=== PATIENT | male | born 1960 | race Caucasian/White ===

== ENCOUNTER 2023-05-15 10:03 | Inpatient (IN) | payer OTHER, MEDICAID ==
[~2023-05-15] VITALS: Ht 172.7 cm; Wt 65.9 kg
[2023-05-15] VITALS (12 sets, daily range): BP systolic 101–124; BP diastolic 74–92; PULSE 105–112; RESP 12–24; TEMP 97.2–99; O2SAT 95–97
[~2023-05-15 10:03] MED LIST: ATOR40TA72 PO; DICL100G15 TOP; DULA0.75; SERT-434 PO; aspirin 81mg tab.chew ONE; heparin 10,000 units/1 ML INJ ONE
[2023-05-15] MEDS ORDERED: aspirin 81mg tab.chew PO ONE ×2 (10:15→10:25)
[2023-05-15 10:16] LABS: BASOPHILS # (AUTO) 0.1 X10'3 (0-0.2); EOSINOPHILS % (AUTO) 0.5 % (0-6); HEMATOCRIT 42.8 % (42.0-52.0); HEMOGLOBIN 14.2 g/dl (14.0-17.9); LYMPHOCYTES # (AUTO) 1.9 X10'3 (1.1-4.8); LYMPHOCYTES % (AUTO) 20.6 % (21-51); MEAN CORPUSCULAR HGB CONC 33.2 g/dL (33.0-36.5); MEAN CORPUSCULAR VOLUME 93.5 FL (78-98); MEAN PLATELET VOLUME 8.7 FL (7.4-10.4); MONOCYTES # (AUTO) 0.9 X10'3 (0-0.9); MONOCYTES % (AUTO) 9.4 % (2-12); NEUTROPHILS # (AUTO) 6.5 X10'3 (1.8-7.7); NEUTROPHILS % (AUTO) 68.5 % (42-75); PLATELET COUNT 347 X10'3 (140-440); RED BLOOD COUNT 4.58 X10'6 (4.70-6.10); RED CELL DISTRIBUTION WIDTH 14.4 % (11.5-14.5); WHITE BLOOD COUNT 9.4 X10'3 (4.5-11.0)
[2023-05-15] MEDS ORDERED: verapamil 2.5 mg/ml inj IV ONE (10:16)
[2023-05-15] MEDS ORDERED: heparin 1,000unit/ml 10ml vial 10 ML ONE (10:17)
[2023-05-15] MEDS ORDERED: LIDOcaine 1% (10mg/ml)w/preservative inj. 20ml MDV ONE (10:17)
[2023-05-15] MEDS ORDERED: iohexol 350MG/ML 100ml bottle IV ONE ×4 (10:17→11:30)
[2023-05-15] MEDS ORDERED: midazolam 1 mg/ML 2ml injection ONE (10:17)
[2023-05-15] MEDS ORDERED: heparin 1,000 UNITS/NS 500ml 500 ML ONE (10:17)
[2023-05-15] MEDS ORDERED: fentaNYL/PF 50MCG/1 ML 2ML syringe ONE (10:17)
--- NOTE | 2023-05-15 10:23 | NUR ---
TO [facility] AT THIS TIME.
[2023-05-15] MEDS ORDERED: heparin 10,000 units/1 ML INJ IV ONE (10:25)
[2023-05-15] MEDS ORDERED: atropine 0.1mg/ml 10ml syringe ONE (10:34)
--- NOTE | 2023-05-15 10:38 | NUR ---
Patient's belongings in safe with security.
[2023-05-15 10:45] LABS: APTT 29 SECONDS (22-32); PROTHROMBIN TIME 11.2 SECONDS (9.0-12.0)
[2023-05-15 10:49] LABS: ALANINE AMINOTRANSFERASE 95 U/L (12-78); ALBUMIN 2.4 G/DL (3.4-5.0); ALBUMIN/GLOBULIN RATIO 0.5 (1.1-1.5); ALKALINE PHOSPHATASE 148 IU/L (46-116); ANION GAP 7 (8-16); ASPARTATE AMINO TRANSFERASE 57 U/L (10-37); BLOOD UREA NITROGEN 15 MG/DL (7-18); BUN/CREATININE RATIO 12.7 (10.0-20.0); CALCIUM 8.8 MG/DL (8.5-10.1); CHLORIDE 97 MMOL/L (99-107); CREATININE 1.18 MG/DL (0.60-1.10); POTASSIUM 4.4 MMOL/L (3.5-5.1); SODIUM 132 MMOL/L (135-145); TOTAL CARBON DIOXIDE 27.6 MMOL/L (24-32); TOTAL PROTEIN 7.3 G/DL (6.4-8.2); eCRCL 62 ML/MIN; eGFR 63 ML/MIN
[2023-05-15 10:52] LABS: GLUCOSE 404 MG/DL (70-104)
[2023-05-15] MEDS ORDERED: tirofiban 12.5mg in NS 250mL 250 ML IV ONE (11:48)
[2023-05-15] MEDS ORDERED: clopidogrel 300mg tablet ONE (11:54)
[2023-05-15] MEDS ORDERED: aspirin 325mg tablet ONE (11:54)
[2023-05-15] MEDS ORDERED: ondansetron/PF 4mg/2ml inj ONE (12:10)
[2023-05-15] MEDS ORDERED: HYDROcodone/acetaminophen 5mg/325mg tablet PO PRN (12:40)
[2023-05-15] MEDS ORDERED: HYDROcodone/acetaminophen 10/325mg tab PO PRN (12:40)
[2023-05-15 13:30] LABS: PRO BRAIN NATRIURETIC PEPTIDE 15002 PG/ML (0-125)
[2023-05-15] MEDS: tirofiban 12.5mg in NS 250mL 250 ML IV SCH (15:30)
[2023-05-15] MEDS ORDERED: mag hydrox/Alum hydrox/simeth 30ml oral suspension PO PRN (15:30)
[2023-05-15] MEDS ORDERED: magnesium Cl slow-release 64mg tablet PO PRN (15:30)
[2023-05-15] MEDS ORDERED: magnesium 2GM in 50ml NS 50 ML IV PRN (15:30)
[2023-05-15] MEDS ORDERED: potassium Cl 20 mEq SR tablet PO PRN ×2 (15:30)
[2023-05-15] MEDS ORDERED: magnesium 4gm in 100ml NS 100 ML IV PRN (15:30)
[2023-05-15] MEDS ORDERED: magnesium hydroxide 30ml (MOM) UD suspension PO PRN (15:30)
[2023-05-15] MEDS ORDERED: potassium Cl 40MEQ/1/2NS 520ml 520 ML IV PRN (15:30)
[2023-05-15] MEDS ORDERED: acetaminophen 325mg tablet PO PRN (15:30)
[2023-05-15] MEDS ORDERED: VITA1TAB20 PO (15:57)
[2023-05-15 18:55] LABS: BILIRUBIN,URINE NEGATIVE (Neg); CLARITY,URINE CLOUDY (Clear); COLOR,URINE YELLOW (Yellow); GLUCOSE, URINE 100 mg/dl (Neg); KETONES,URINE NEGATIVE (Neg); LEUKOCYTE ESTERASE ,URINE NEGATIVE (Neg); NITRITES, URINE NEGATIVE (Neg); OCCULT BLOOD,URINE TRACE-INTACT (Neg); PH,URINE 6.5 (4.8-8.0); PROTEIN,URINE TRACE mg/dl (Neg)
--- NOTE | 2023-05-15 19:05 | NUR ---
Problems reprioritized. Patient report given, questions answered & plan of care reviewed with Jocelyn AGUILAR, patient stable at transfer of care.
[2023-05-15 19:13] LABS: URINE AMPHETAMINE SCREEN NEGATIVE (Neg); URINE BARBITUATE SCREEN NEGATIVE (Neg); URINE BENZODIAZEPINES SCREEN POSITIVE (Neg); URINE CANNABINOID SCREEN POSITIVE (Neg); URINE COCAINE SCREEN NEGATIVE (Neg); URINE METHADONE SCREEN NEGATIVE (Neg); URINE OPIATE SCREEN NEGATIVE (Neg); URINE PHENCYCLIDINE SCREEN NEGATIVE (Neg)
[2023-05-15 19:24] LABS: UA COLLECTION TYPE CLN CATCH MIDSTREAM
[2023-05-15 19:25] LABS: BACTERIA,URINE FEW /HPF (Neg); MUCUS STRANDS FEW /LPF (Neg); SQUAMOUS EPITHELIAL CELL,UR FEW /LPF (FEW)
[2023-05-15] MEDS ORDERED: dextrose 50%-water 50ml dispensing syringe IV PRN ×2 (19:25)
[2023-05-15] MEDS ORDERED: insulin Lispro (HumaLOG) vial - multi-dose SQ SCH (19:25)
[2023-05-15] MEDS ORDERED: DEXTROSE 15 GM of carb/4 tabs (each vial/BOTTLE has 4 tablets) PO PRN ×2 (19:25)
[2023-05-15] MEDS ORDERED: glucagon, human recombinant 1mg kit SUBCUT PRN (19:25)
[2023-05-15 19:26] LABS: YEAST FEW /HPF (NEGATIVE)
[2023-05-15] MEDS: K and/or MAG REPLACEMENT MC SCH (19:33)
--- NOTE | 2023-05-15 19:35 | NUR ---
pt's B/S is 265. okayed to start hypo/ hyperglycemic protocol.
[2023-05-15] MEDS: docusate sod 100mg capsule PO SCH (19:54)
[2023-05-15] MEDS ORDERED: metoprolol tartrate 25mg tablet PO SCH (20:00)
[2023-05-15] MEDS: insulin glargine (Lantus) pen - multi-dose SQ SCH (21:00)
--- NOTE | 2023-05-15 21:11 | NUR ---
pt refused night time insulin (lantus). Said he has not and will not take insulin
--- NOTE | 2023-05-15 21:17 | NUR ---
Page Sent PAGER ID: [phone] MESSAGE: Kian Fajardo in rm [id number] has b/s of 234, but is refusing to take insulin. Mahogany u [id number]
[2023-05-15] MEDS: ondansetron/PF 4mg/2ml inj IV PRN (22:19)
--- NOTE | 2023-05-15 22:46 | NUR ---
Pt vomited dark brownish like substance this night. Leon Booker was notified and he ordered a CBC lab test. Will continue to monitor.
[2023-05-15 23:31] LABS: BASOPHILS # (AUTO) 0.1 X10'3 (0-0.2); BASOPHILS % (AUTO) 0.9 % (0-1); EOSINOPHILS % (AUTO) 0.4 % (0-6); HEMATOCRIT 42.2 % (42.0-52.0); HEMOGLOBIN 13.8 g/dl (14.0-17.9); LYMPHOCYTES # (AUTO) 2.2 X10'3 (1.1-4.8); LYMPHOCYTES % (AUTO) 16.3 % (21-51); MEAN CORPUSCULAR HEMOGLOBIN 30.6 PG (27.0-31.0); MEAN CORPUSCULAR HGB CONC 32.6 g/dL (33.0-36.5); MEAN PLATELET VOLUME 9.1 FL (7.4-10.4); MONOCYTES # (AUTO) 0.8 X10'3 (0-0.9); MONOCYTES % (AUTO) 6.1 % (2-12); NEUTROPHILS # (AUTO) 10.1 X10'3 (1.8-7.7); NEUTROPHILS % (AUTO) 76.3 % (42-75); PLATELET COUNT 388 X10'3 (140-440); RED BLOOD COUNT 4.49 X10'6 (4.70-6.10); RED CELL DISTRIBUTION WIDTH 14.6 % (11.5-14.5); WHITE BLOOD COUNT 13.3 X10'3 (4.5-11.0)
[2023-05-16 02:00] VITALS: BP 116/84; PULSE 102; RESP 21; TEMP 98.8; O2SAT 96
[2023-05-16] MEDS: tirofiban 12.5mg in NS 250mL 250 ML IV SCH (02:55)
--- NOTE | 2023-05-16 06:12 | NUR ---
Problems reprioritized. Patient report given, questions answered & plan of care reviewed with Edwige.
[2023-05-16 08:00] VITALS: RESP 25; O2SAT 98
[2023-05-16] MEDS: clopidogrel 75mg tablet PO SCH (08:00)
[2023-05-16] MEDS ORDERED: LORazepam 0.5 MG tablet PO PRN (08:00)
[2023-05-16] MEDS: K and/or MAG REPLACEMENT MC SCH ×2 (08:00→20:00)
[2023-05-16] MEDS: docusate sod 100mg capsule PO SCH ×3 (08:00→20:20)
[2023-05-16] MEDS: aspirin 81mg tab.chew PO SCH (08:30)
[2023-05-16] MEDS: ondansetron/PF 4mg/2ml inj IV PRN (08:49)
[2023-05-16] MEDS ORDERED: pantoprazole 40MG/NS 100ML BAG 100 ML IV ONE (10:35)
[2023-05-16 12:44] LABS: ALBUMIN 2.4 G/DL (3.4-5.0); ALBUMIN/GLOBULIN RATIO 0.5 (1.1-1.5); ALKALINE PHOSPHATASE 161 IU/L (46-116); ANION GAP 14 (8-16); BILIRUBIN,TOTAL 1.5 MG/DL (0.1-1.0); BLOOD UREA NITROGEN 28 MG/DL (7-18); BUN/CREATININE RATIO 20.1 (10.0-20.0); CALCIUM 9.2 MG/DL (8.5-10.1); CHLORIDE 97 MMOL/L (99-107); CREATININE 1.39 MG/DL (0.60-1.10); GLUCOSE 213 MG/DL (70-104); MAGNESIUM 2.5 MG/DL (1.5-2.4); POTASSIUM 5.8 MMOL/L (3.5-5.1); SODIUM 129 MMOL/L (135-145); TOTAL PROTEIN 7.6 G/DL (6.4-8.2); eCRCL 53 ML/MIN; eGFR 52 ML/MIN
[2023-05-16] MEDS: metoprolol succinate 25mg (24-HOUR) SR. Tablet PO SCH (13:20)
[2023-05-16 13:31] LABS: ASPARTATE AMINO TRANSFERASE 3012 U/L (10-37)
[2023-05-16 13:32] LABS: ALANINE AMINOTRANSFERASE 1787 U/L (12-78)
--- NOTE | 2023-05-16 13:58 | NUR ---
PAGER ID: [phone] MESSAGE: [id number], Kian Fajardo. Pts ALT is [id number] and AST [id number]. Edwige SERRATO
[2023-05-16 15:00] VITALS: BP 126/75; PULSE 101; RESP 25; TEMP 97.6; O2SAT 96
[2023-05-16 18:00] VITALS: BP 105/76; PULSE 105; RESP 23; TEMP 99.9; O2SAT 93
--- NOTE | 2023-05-16 18:30 | NUR ---
Patient in room PCU 3023. I have received report from Edwige AGUILAR and had the opportunity to ask questions and assume patient care.
--- NOTE | 2023-05-16 18:44 | NUR ---
Problems reprioritized. Patient report given, questions answered & plan of care reviewed with Alee AGUILAR, patient stable at transfer of care.
--- NOTE | 2023-05-16 19:00 | NUR ---
PT REFUSED SHORT ACTING INSULIN; EDUCATED ON PROS AND CONS OF REFUSING THE INSULIN.
[2023-05-16 20:00] VITALS: RESP 23; O2SAT 93
[2023-05-16] MEDS: insulin glargine (Lantus) pen - multi-dose SQ SCH (21:00)
--- NOTE | 2023-05-16 21:52 | NUR ---
PT REFUSED FOR ACCUCHECK AND LONG-ACTING INSULIN; EDUCATED ON PROS AND CONS OF REFUSING THE INSULIN; BUT PT IS NOT WILLING TO TAKE IT
[2023-05-16 22:00] VITALS: BP 96/56; PULSE 90; RESP 15; TEMP 98.3; O2SAT 96
--- NOTE | 2023-05-17 06:22 | NUR ---
Patient in room PCU 3023. I have received report from Alee AGUILAR and had the opportunity to ask questions and assume patient care.
--- NOTE | 2023-05-17 06:23 | NUR ---
Problems reprioritized. Patient report given, questions answered & plan of care reviewed with Bentley AGUILAR.
[2023-05-17 07:00] VITALS: BP 115/70; PULSE 109; RESP 18; TEMP 98.4; O2SAT 93
[2023-05-17 07:48] LABS: ALBUMIN 2.6 G/DL (3.4-5.0); ANION GAP 13 (8-16); BLOOD UREA NITROGEN 49 MG/DL (7-18); BUN/CREATININE RATIO 23.3 (10.0-20.0); CALCIUM 8.2 MG/DL (8.5-10.1); CHLORIDE 97 MMOL/L (99-107); CHOL/HDL RATIO 5.3 (0.00-4.99); CHOLESTEROL 112 MG/DL (0-200); GLUCOSE 253 MG/DL (70-104); HDL CHOLESTEROL 21 MG/DL (35-60); LDL CHOLESTEROL 81 MG/DL (50-100); MAGNESIUM 2.3 MG/DL (1.5-2.4); SODIUM 132 MMOL/L (135-145); TOTAL CARBON DIOXIDE 21.9 MMOL/L (24-32); TRIGLYCERIDES 64 MG/DL (20-135); eCRCL 35 ML/MIN; eGFR 32 ML/MIN
[2023-05-17 07:51] LABS: BASOPHILS % (AUTO) 0.4 % (0-1); EOSINOPHILS % (AUTO) 0.3 % (0-6); HEMATOCRIT 41.5 % (42.0-52.0); HEMOGLOBIN 13.7 g/dl (14.0-17.9); LYMPHOCYTES # (AUTO) 1.5 X10'3 (1.1-4.8); LYMPHOCYTES % (AUTO) 14.9 % (21-51); MEAN CORPUSCULAR HEMOGLOBIN 31.3 PG (27.0-31.0); MEAN CORPUSCULAR VOLUME 94.8 FL (78-98); MEAN PLATELET VOLUME 9.9 FL (7.4-10.4); MONOCYTES # (AUTO) 0.2 X10'3 (0-0.9); MONOCYTES % (AUTO) 2.3 % (2-12); NEUTROPHILS # (AUTO) 8.5 X10'3 (1.8-7.7); NEUTROPHILS % (AUTO) 82.1 % (42-75); PLATELET COUNT 272 X10'3 (140-440); RED BLOOD COUNT 4.38 X10'6 (4.70-6.10); RED CELL DISTRIBUTION WIDTH 14.4 % (11.5-14.5); WHITE BLOOD COUNT 10.4 X10'3 (4.5-11.0)
[2023-05-17 08:00] VITALS: RESP 18; O2SAT 93
[2023-05-17] MEDS: K and/or MAG REPLACEMENT MC SCH ×2 (08:00→20:00)
[2023-05-17] MEDS ORDERED: atorvastatin 20mg tablet PO SCH (08:00)
[2023-05-17] MEDS: docusate sod 100mg capsule PO SCH ×2 (08:00→19:55)
[2023-05-17] MEDS: clopidogrel 75mg tablet PO SCH (08:14)
[2023-05-17] MEDS: metoprolol succinate 25mg (24-HOUR) SR. Tablet PO SCH (08:14)
[2023-05-17] MEDS: aspirin 81mg tab.chew PO SCH (08:14)
[2023-05-17 08:15] LABS: HEMOGLOBIN A1C 7.6 % (4.5-6.2)
[2023-05-17 10:36] LABS: ALBUMIN/GLOBULIN RATIO 0.7 (1.1-1.5); ALKALINE PHOSPHATASE 177 IU/L (46-116); BILIRUBIN,DIRECT 0.6 MG/DL (0-0.3); BILIRUBIN,TOTAL 1.1 MG/DL (0.1-1.0); PRO BRAIN NATRIURETIC PEPTIDE 16096 PG/ML (0-125); TOTAL PROTEIN 6.4 G/DL (6.4-8.2)
[2023-05-17 11:00] VITALS: BP 103/74; PULSE 105; RESP 24; TEMP 97.7; O2SAT 97
[2023-05-17 11:09] LABS: ALANINE AMINOTRANSFERASE 6017 U/L (12-78); ASPARTATE AMINO TRANSFERASE > 7000 U/L (10-37)
[2023-05-17 15:00] VITALS: BP 115/88; PULSE 105; RESP 20; TEMP 97.7; O2SAT 96
[2023-05-17] MEDS: normal saline 1000ml 1,000 ML IV SCH (16:33)
--- NOTE | 2023-05-17 16:40 | NUR ---
Pt has been refusing insulin for his DM control. Today I checked if I could check his BS and he refused. He stated, "If I'm not having you use insulin why do you need to check my BS?" I educated him about BS checks and DM briefly but he didn't want to be told about it. I told him I wouldn't check his BS if he didn't want it. BS checks have been held today via glucometer, AM glucose checks were done with labs this morning.
[2023-05-17 18:00] VITALS: BP 117/81; PULSE 106; RESP 22; TEMP 97.2; O2SAT 93
--- NOTE | 2023-05-17 18:30 | NUR ---
Problems reprioritized. Patient report given, questions answered & plan of care reviewed with Angélica VALVERDE.
--- NOTE | 2023-05-17 18:40 | NUR ---
Patient in room PCU 3023. I have received report from Bentley sanders and had the opportunity to ask questions and assume patient care.
[2023-05-17] MEDS: insulin glargine (Lantus) pen - multi-dose SQ SCH (21:00)
--- NOTE | 2023-05-17 23:06 | NUR ---
pt refusing meds, accuchecks, vitals and most nursing care.
[2023-05-18] VITALS (9 sets, daily range): BP systolic 80–113; BP diastolic 49–83; PULSE 92–107; RESP 13–23; TEMP 97.3–99.8; O2SAT 92–96
[2023-05-18] MEDS: normal saline 1000ml 1,000 ML IV SCH ×2 (01:45→11:45)
--- NOTE | 2023-05-18 06:38 | NUR ---
Problems reprioritized. Patient report given, questions answered & plan of care reviewed with iwona sanders.
--- NOTE | 2023-05-18 06:47 | NUR ---
Patient in room PCU 3023. I have received report from edwina montejo and had the opportunity to ask questions and assume patient care.
[2023-05-18] MEDS: docusate sod 100mg capsule PO SCH ×2 (07:50→20:00)
[2023-05-18] MEDS: clopidogrel 75mg tablet PO SCH (07:53)
[2023-05-18] MEDS: aspirin 81mg tab.chew PO SCH (07:53)
[2023-05-18] MEDS: metoprolol succinate 25mg (24-HOUR) SR. Tablet PO SCH (07:54)
[2023-05-18] MEDS: K and/or MAG REPLACEMENT MC SCH ×2 (08:00→20:00)
[2023-05-18 08:02] LABS: BASOPHILS # (AUTO) 0.1 X10'3 (0-0.2); BASOPHILS % (AUTO) 0.9 % (0-1); EOSINOPHILS # (AUTO) 0.1 X10'3 (0-0.9); EOSINOPHILS % (AUTO) 1.3 % (0-6); HEMATOCRIT 41.6 % (42.0-52.0); HEMOGLOBIN 13.9 g/dl (14.0-17.9); LYMPHOCYTES # (AUTO) 1.2 X10'3 (1.1-4.8); LYMPHOCYTES % (AUTO) 11.2 % (21-51); MEAN CORPUSCULAR HEMOGLOBIN 31.5 PG (27.0-31.0); MEAN CORPUSCULAR HGB CONC 33.4 g/dL (33.0-36.5); MEAN CORPUSCULAR VOLUME 94.3 FL (78-98); MEAN PLATELET VOLUME 9.7 FL (7.4-10.4); MONOCYTES # (AUTO) 0.5 X10'3 (0-0.9); MONOCYTES % (AUTO) 4.3 % (2-12); NEUTROPHILS # (AUTO) 9.1 X10'3 (1.8-7.7); NEUTROPHILS % (AUTO) 82.3 % (42-75); PLATELET COUNT 270 X10'3 (140-440); RED BLOOD COUNT 4.41 X10'6 (4.70-6.10); RED CELL DISTRIBUTION WIDTH 14.6 % (11.5-14.5)
[2023-05-18 08:34] LABS: ALBUMIN 2.3 G/DL (3.4-5.0); ALBUMIN/GLOBULIN RATIO 0.5 (1.1-1.5); ALKALINE PHOSPHATASE 188 IU/L (46-116); ANION GAP 9 (8-16); BILIRUBIN,TOTAL 1.1 MG/DL (0.1-1.0); BLOOD UREA NITROGEN 30 MG/DL (7-18); CALCIUM 8.1 MG/DL (8.5-10.1); CHLORIDE 102 MMOL/L (99-107); CREATININE 1.25 MG/DL (0.60-1.10); GLUCOSE 134 MG/DL (70-104); MAGNESIUM 2.2 MG/DL (1.5-2.4); POTASSIUM 4.1 MMOL/L (3.5-5.1); SODIUM 137 MMOL/L (135-145); TOTAL CARBON DIOXIDE 26.2 MMOL/L (24-32); TOTAL PROTEIN 6.5 G/DL (6.4-8.2); eCRCL 59 ML/MIN; eGFR 59 ML/MIN
[2023-05-18 08:47] LABS: ALANINE AMINOTRANSFERASE 4037 U/L (12-78); ASPARTATE AMINO TRANSFERASE 2062 U/L (10-37)
[2023-05-18] MEDS ORDERED: LOSA25TA41 PO (10:59)
[2023-05-18] MEDS ORDERED: CLOP75TA34 PO (10:59)
[2023-05-18] MEDS ORDERED: ASPI81TA53 PO (10:59)
[2023-05-18] MEDS ORDERED: METO-395 PO (10:59)
[2023-05-18] MEDS: losartan 25mg tablet PO SCH (12:19)
--- NOTE | 2023-05-18 13:11 | NUR ---
Per EMR pt with T2DM, well controlled with A1c 7.6%. Per H&P pt with Trulicity on home med list. Written DM education with RD contact information placed in patient's chart. Will remain available. Addendum: 05/18/23 at 1312 [address] Amended: Links added.
--- NOTE | 2023-05-18 18:08 | NUR ---
Patient in room PCU 3023. I have received report from iwona sanders and had the opportunity to ask questions and assume patient care.
--- NOTE | 2023-05-18 18:08 | NUR ---
Problems reprioritized. Patient report given, questions answered & plan of care reviewed with jovan montejo.
[2023-05-18] MEDS: insulin glargine (Lantus) pen - multi-dose SQ SCH (21:00)
[2023-05-19 02:00] VITALS: BP 100/71; PULSE 96; RESP 18; TEMP 98.4; O2SAT 96
[2023-05-19 06:00] VITALS: BP 102/71; PULSE 97; RESP 17; TEMP 98.4; O2SAT 98
--- NOTE | 2023-05-19 06:30 | NUR ---
Problems reprioritized. Patient report given, questions answered & plan of care reviewed with tin sanders.
--- NOTE | 2023-05-19 06:38 | NUR ---
I have received report from JEFF Larkin and had the opportunity to ask questions and assume patient care. No distress at this time.
[2023-05-19 07:21] LABS: BASOPHILS # (AUTO) 0.1 X10'3 (0-0.2); BASOPHILS % (AUTO) 1.2 % (0-1); EOSINOPHILS # (AUTO) 0.2 X10'3 (0-0.9); EOSINOPHILS % (AUTO) 1.9 % (0-6); HEMATOCRIT 41.1 % (42.0-52.0); HEMOGLOBIN 13.6 g/dl (14.0-17.9); LYMPHOCYTES # (AUTO) 1.3 X10'3 (1.1-4.8); LYMPHOCYTES % (AUTO) 12.5 % (21-51); MEAN CORPUSCULAR HEMOGLOBIN 31.2 PG (27.0-31.0); MEAN CORPUSCULAR HGB CONC 33.2 g/dL (33.0-36.5); MEAN CORPUSCULAR VOLUME 94.1 FL (78-98); MEAN PLATELET VOLUME 9.7 FL (7.4-10.4); MONOCYTES # (AUTO) 0.7 X10'3 (0-0.9); MONOCYTES % (AUTO) 6.7 % (2-12); NEUTROPHILS # (AUTO) 8.3 X10'3 (1.8-7.7); NEUTROPHILS % (AUTO) 77.7 % (42-75); PLATELET COUNT 261 X10'3 (140-440); RED BLOOD COUNT 4.36 X10'6 (4.70-6.10); RED CELL DISTRIBUTION WIDTH 14.5 % (11.5-14.5); WHITE BLOOD COUNT 10.7 X10'3 (4.5-11.0)
[2023-05-19] MEDS: metoprolol succinate 25mg (24-HOUR) SR. Tablet PO SCH (07:30)
[2023-05-19] MEDS: clopidogrel 75mg tablet PO SCH (07:30)
[2023-05-19] MEDS: aspirin 81mg tab.chew PO SCH (07:31)
[2023-05-19] MEDS: docusate sod 100mg capsule PO SCH (07:31)
[2023-05-19] MEDS: losartan 25mg tablet PO SCH (07:31)
[2023-05-19 07:39] LABS: ALBUMIN 2.2 G/DL (3.4-5.0); ALBUMIN/GLOBULIN RATIO 0.5 (1.1-1.5); ALKALINE PHOSPHATASE 185 IU/L (46-116); ANION GAP 7 (8-16); ASPARTATE AMINO TRANSFERASE 694 U/L (10-37); BILIRUBIN,TOTAL 0.9 MG/DL (0.1-1.0); BLOOD UREA NITROGEN 21 MG/DL (7-18); BUN/CREATININE RATIO 19.4 (10.0-20.0); CALCIUM 8.1 MG/DL (8.5-10.1); CHLORIDE 103 MMOL/L (99-107); CREATININE 1.08 MG/DL (0.60-1.10); GLUCOSE 147 MG/DL (70-104); MAGNESIUM 2.1 MG/DL (1.5-2.4); POTASSIUM 4.5 MMOL/L (3.5-5.1); SODIUM 137 MMOL/L (135-145); TOTAL CARBON DIOXIDE 27.1 MMOL/L (24-32); TOTAL PROTEIN 6.4 G/DL (6.4-8.2); eCRCL 68 ML/MIN; eGFR 70 ML/MIN
[2023-05-19 07:41] LABS: ALANINE AMINOTRANSFERASE 2775 U/L (12-78)
[2023-05-19 08:00] VITALS: RESP 16; O2SAT 96
[2023-05-19] MEDS: K and/or MAG REPLACEMENT MC SCH (08:00)
[2023-05-19 11:00] VITALS: BP_SYST 145; BP_SYST 91; BP_DIAS 57; BP_DIAS 64; PULSE 95; RESP 19; TEMP 97.7; O2SAT 93; O2SAT 97
--- NOTE | 2023-05-19 14:50 | NUR ---
Patient stable for s Addendum: 05/19/23 at 1454 by Brinda BLACKWOODN discharge, alert and oriented. Accompanied by daughter and friend. D/c paperwork went over w/ pt and daughter, taking medications promptly, cardiac pill information from patients binder. VS stable. Patients' IV taken out, cannula intact. All valuables with pt, obtained valuables from the admission safe. Wheeled down to the lobby for pickup, daughter drove. TELE d/c'd.
[2023-05-19 15:59] LABS: HBSAG SCREEN Negative (Negative); HEP A AB, IGM Negative (Negative); HEP B CORE AB, IGM Negative (Negative)
[2023-05-23 15:18] LABS: HEPATITIS C VIRUS ANTIBODY Reactive (Non Reactive)
== END 2023-05-19 14:34 | disposition home or self-care (01) | DRG 246 ==
LOC: ER 10:04 → MERGE 13:30 → PCU 3S 13:30
PROVIDERS: ADMIT Student in an Organized Health Care Education/Training Program; ATTEND Student in an Organized Health Care Education/Training Program
PROC: 4A023N7 Measurement of Cardiac Sampling and Pressure, Left Heart, Percutaneous Approach (ICD-10-PCS; principal; 2023-05-15)
PROC: 027034Z Dilation of Coronary Artery, One Artery with Drug-eluting Intraluminal Device, Percutaneous Approach (ICD-10-PCS; 2023-05-15)
PROC: B2111ZZ Fluoroscopy of Multiple Coronary Arteries using Low Osmolar Contrast (ICD-10-PCS; 2023-05-15)
PROC: 3E033PZ Introduction of Platelet Inhibitor into Peripheral Vein, Percutaneous Approach (ICD-10-PCS; 2023-05-15)
DX: I21.02 ST elevation (STEMI) myocardial infarction involving left anterior descending coronary artery (principal); I50.23 Acute on chronic systolic (congestive) heart failure; K72.00 Acute and subacute hepatic failure without coma; N17.0 Acute kidney failure with tubular necrosis; K76.6 Portal hypertension; N17.9 Acute kidney failure, unspecified; I13.0 Hypertensive heart and chronic kidney disease with heart failure and stage 1 through stage 4 chronic kidney disease, or unspecified chronic kidney disease; E87.1 Hypo-osmolality and hyponatremia; E87.20 Acidosis, unspecified; R74.01 Elevation of levels of liver transaminase levels; F17.210 Nicotine dependence, cigarettes, uncomplicated; F14.10 Cocaine abuse, uncomplicated; E11.22 Type 2 diabetes mellitus with diabetic chronic kidney disease; F15.10 Other stimulant abuse, uncomplicated; K29.70 Gastritis, unspecified, without bleeding; N18.30 Chronic kidney disease, stage 3 unspecified; F12.10 Cannabis abuse, uncomplicated; R74.8 Abnormal levels of other serum enzymes; E87.5 Hyperkalemia; E78.5 Hyperlipidemia, unspecified; R31.29 Other microscopic hematuria; B19.20 Unspecified viral hepatitis C without hepatic coma; I25.5 Ischemic cardiomyopathy; E11.65 Type 2 diabetes mellitus with hyperglycemia; I25.10 Atherosclerotic heart disease of native coronary artery without angina pectoris; Z56.0 Unemployment, unspecified; Z79.02 Long term (current) use of antithrombotics/antiplatelets; Z79.82 Long term (current) use of aspirin; Z79.899 Other long term (current) drug therapy; Z88.8 Allergy status to other drugs, medicaments and biological substances; Z71.51 Drug abuse counseling and surveillance of drug abuser; Z71.6 Tobacco abuse counseling
CPT/HCPCS: 93306; 93454; 96374; 99285; C9606; 36415; 71045; 76700; 76770; 80048; 80053; 80061; 80074; 80076; 80305; 81001; 82948; 83036; 83735; 83880; 84484; 85025; 85610; 85730; 93005; 93975; 99152; 99153; A6258; C1725; C1751; C1760; C1769; C1874; C9113; G0378; J0461; J1644; J1815; J2250; J2405; J3010; J3246; J3490; J7030; Q9967